=== PATIENT | female | born 1945 | race Caucasian/White ===

== ENCOUNTER 2021-09-24 19:39 | Emergency (ER) | payer OTHER ==
[2021-09-24] MEDS ORDERED: ONDANSETRON 4 MG/2 ML VIAL ONE (21:07)
[2021-09-24] MEDS ORDERED: NA CHLORIDE 0.9% 500 ML ONE (21:07)
[2021-09-24 21:08] LABS: Absolute Lymphocytes (CBC) 0.8 K/uL (0.7-4.9); Hematocrit 46.1 % (36.0-45.0); Lymphocytes % 13.4 % (15.3-44.8); MPV 8.7 fL (7.6-11.3); RBC Red Blood Cell Count 5.39 M/uL (3.86-4.86)
--- NOTE | 2021-09-24 21:22 | RAD REPORT ---
EXAM DESCRIPTION: RAD - Chest Single View - 09/24/2021 9:14 pm CLINICAL HISTORY: Cough;Dyspnea Chest pain. COMPARISON: No comparisons FINDINGS: Portable technique limits examination quality. Interstitial lung markings are mildly prominent suggesting a mild viral infection. The heart is mildl y prominent in size. No displaced fractures.
[2021-09-24 21:23] LABS: SARS-COV-2 RT PCR POSITIVE (NEGATIVE)
[2021-09-24 21:55] LABS: Ferritin 224.9 ng/mL (8-388); Potassium 4.1 mmol/L (3.5-5.1)
[2021-09-24] MEDS ORDERED: NA CHLORIDE 0.9% 250 ML ONE (22:21)
[2021-09-24] MEDS ORDERED: METHYLPREDNISOLONE 125 MG INJ ONE (22:21)
--- NOTE | 2021-09-24 23:32 | ER ---
Nurse's Notes [facility] Name: Meseret Biswas Age: 76 yrs Sex: Female : 1945 Arrival Date: 09/24/2021 Time: 19:49 Bed 17 Private MD: Diagnosis: SARS-associated coronavirus as the cause of diseases classified elsewhere;Dehydration Presentation: 09/24 20:13 Chief complaint: Patient states: "I started feeling bad a week ago. My back is hurting al4 like in my kidneys" and reports not urinating much due to not drinking. Patient is SOB with small amount of coughing. Denies vomitting, reports nausea/diarrhea. Coronavirus screen: Vaccine status: Patient reports being unvaccinated. Client presents with at least one sign or symptom that may indicate coronavirus-19. Initial Sepsis Screen: Does the patient meet any 2 criteria? No. Patient's initial sepsis screen is negative. Does the patient have a suspected source of infection? No. Patient's initial sepsis screen is negative. Risk Assessment: Do you want to hurt yourself or someone else? Patient reports no desire to harm self or others. Onset of symptoms was September 18, 2021. 20:13 Method Of Arrival: Ambulatory al4 20:13 Acuity: JOVON 3 al4 20:54 Ebola Screen: Patient negative for fever greater than or equal to 101.5 degrees ab2 Fahrenheit, and additional compatible Ebola Virus Disease symptoms Patient denies exposure to infectious person. Patient denies travel to an Ebola-affected area in the 21 days before illness onset. No symptoms or risks identified at this time. Triage Assessment: 20:17 General: Appears in no apparent distress. uncomfortable, Behavior is calm, cooperative, al4 appropriate for age. Neuro: Level of Consciousness is awake, alert, obeys commands, Oriented to person, place, time. Cardiovascular: Capillary refill < 3 seconds Patient's skin is warm and dry. Respiratory: Airway is patent Respiratory effort is even, unlabored, Respiratory pattern is regular, symmetrical. GI: Reports diarrhea, nausea. : No signs and/or symptoms were reported regarding the genitourinary system. :. 20:24 Pain: Pain currently is 10 out of 10 on a pain scale. al4 Historical: - Allergies: 20:25 Morphine; al4 - PMHx: 20:25 Hypertensive disorder; Atrial fibrillation; al4 - Immunization history:: Adult Immunizations up to date, Client reports having NOT received the Covid vaccine. Pneumococcal vaccine is not up to date. - Social history:: Smoking status: Patient denies any tobacco usage or history of. - Family history:: not pertinent. - Hospitalizations: : No recent hospitalization is reported. Screenin:54 Abuse screen: Denies threats or abuse. Denies injuries from another. Nutritional ab2 screening: No deficits noted. Tuberculosis screening: No symptoms or risk factors identified. Fall Risk None identified. Assessment: 20:52 General: Appears in no apparent distress. uncomfortable, Behavior is calm, cooperative, ab2 appropriate for age. Pain: Complains of pain in abdomen Pain currently is 3 out of 10 on a pain scale. Neuro: Level of Consciousness is awake, alert, obeys commands, Oriented to person, place, time, situation, Appropriate for age Compound Specialist are equal bilaterally Moves all extremities. Gait is steady. Cardiovascular: Denies chest pain, shortness of breath, Heart tones S1 S2 present Patient's skin is warm and dry. Chest pain is denied. Respiratory: Airway is patent Breath sounds are clear Denies cough, shortness of breath. GI: Abdomen is round non-distended, Bowel sounds present X 4 quads. Abdomen is tender to palpation X 4 quads. Reports lower abdominal pain, upper abdominal pain, diarrhea, intolerance of fluids, intolerance of food, nausea, vomiting. : No deficits noted. No signs and/or symptoms were reported regarding the genitourinary system. EENT: No deficits noted. No signs and/or symptoms were reported regarding the EENT system. Derm: No deficits noted. No signs and/or symptoms reported regarding the dermatologic system. Musculoskeletal: No deficits noted. No signs and/or symptoms reported regarding the musculoskeletal system. 21:23 Reassessment: Patient appears in no apparent distress at this time. No changes from tk1 previously documented assessment. Assumed care. General: Appears in no apparent distress. uncomfortable, Behavior is calm, cooperative, appropriate for age. Pain: Complains of pain in abdomen Pain currently is 3 out of 10 on a pain scale. Neuro: Level of Consciousness is awake, alert, obeys commands, Oriented to person, place, time, situation, Appropriate for age Compound Specialist are Moves all extremities. Gait is steady, Reports Denies. Cardiovascular: Denies chest pain, shortness of breath, Heart tones S1 S2 present Patient's skin is warm and dry. Chest pain is denied. Respiratory: Airway is patent Breath sounds are clear. GI: Abdomen is round non-distended, Bowel sounds present X 4 quads. Abdomen is tender to palpation X 4 quads. Reports lower abdominal pain, upper abdominal pain, diarrhea, intolerance of fluids, intolerance of food, nausea. : No deficits noted. No signs and/or symptoms were reported regarding the genitourinary system. EENT: No deficits noted. No signs and/or symptoms were reported regarding the EENT system. Derm: No deficits noted. No signs and/or symptoms reported regarding the dermatologic system. Musculoskeletal: No deficits noted. No signs and/or symptoms reported regarding the musculoskeletal system. 22:30 Reassessment: Patient appears in no apparent distress at this time. No changes from tk1 previously documented assessment. D/C per MD order. Discharge/Prescription instructions given to patient. Verbalized understanding. Vital Signs: 20:13 BP 139 / 104; Pulse 60; Resp 18; Temp 98.6; Pulse Ox 97% ; Height 5 ft. 2 in. (157.48 al4 cm) (R); 21:23 BP 129 / 110; Pulse 75; Resp 18; Temp 98.6; Pulse Ox 94% ; Pain 3/10; tk1 22:00 BP 109 / 71 LA Supine (auto/reg); Pulse 94 MON; Resp 22; Pulse Ox 97% on R/A; tk1 23:00 BP 134 / 83 LL Supine (auto/reg); Pulse 91 MON; Resp 20 S; Temp 98.3(O); Pulse Ox 97% tk1 on R/A; Vitals: 22:00 Cardiac Rhythm Assessment Atrial fibrillation. tk1 [place] Coma Score: 21:23 Eye Response: spontaneous(4). Verbal Response: oriented(5). Motor Response: obeys tk1 commands(6). Total: 15. ED Course: 19:49 Patient arrived in ED. ja2 20:17 Triage completed. al4 20:20 Scott Crawford MD is Attending Physician. rn 20:24 Arm band placed on left wrist. al4 20:27 COVID-19/FLU A+B (Document "Date of Onset" if Symptomatic) Sent. al4 20:54 Patient has correct armband on for positive identification. Bed in low position. Call ab2 light in reach. Side rails up X2. 20:54 No provider procedures requiring assistance completed. Inserted saline lock: 20 gauge ab2 in right antecubital area, using aseptic technique. Blood collected. 20:55 COVID-19/FLU A+B (Document "Date of Onset" if Symptomatic) Sent. ab2 20:55 CBC with Diff Sent. ab2 20:55 Basic Metabolic Panel Sent. ab2 20:55 Ferritin Sent. ab2 20:55 Procalcitonin Sent. ab2 20:55 CBC with Automated Diff Sent. ab2 20:58 Ramya Jackson is Primary Nurse. tk1 21:14 XRAY Chest (1 view) In Process Unspecified. EDMS 21:23 Awaiting lab results. tk1 21:23 No provider procedures requiring assistance completed. IV is patent, is intact, with tk1 fluids infusing freely. 23:00 IV discontinued, intact, bleeding controlled, No redness/swelling at site. Pressure tk1 dressing applied. Administered Medications: 21:08 Drug: NS 0.9% 500 ml Route: IV; Rate: bolus; Site: right antecubital; ab2 21:08 Drug: Zofran (Ondansetron) 4 mg Route: IVP; Site: right antecubital; ab2 22:17 Drug: NS 0.9% 250 ml Route: IV; Rate: 1 bolus; Site: right antecubital; tk1 22:18 Drug: SOLU-Medrol (methylPrednisoLONE) 125 mg Route: IVP; Site: right antecubital; tk1 Outcome: 23:31 Discharge ordered by . rn 09/25 00:10 Discharged to home via wheelchair, with family. tk1 Condition: stable Discharge instructions given to patient, family, Instructed on discharge instructions, follow up and referral plans. medication usage, Demonstrated understanding of instructions, follow-up care, medications, Prescriptions given X 3. 00:11 Patient left the ED. tk1 Signatures: Dispatcher [employer] EDMS Scott Crawford MD MD rn Alexander, Jessica ja2 Mamadou Begum al4 Ramya Jackson tk1 Mamadou Lares ab2 Corrections: (The following items were deleted from the chart) 09/24 22:10 20:55 C-REACTIVE PROTEIN+C.LAB.BRZ drawn and sent. ab2 EDMS 22:17 21:50 NS 0.9% 250 ml IV at 1 bolus in right antecubital tk1 tk1
--- NOTE | 2021-09-24 23:32 | EDPHYS ---
Physician Documentation [facility] Name: Meseret Biswas Age: 76 yrs Sex: Female : 1945 Arrival Date: 09/24/2021 Time: 19:49 Bed 17 Private MD: ED Physician Scott Crawford HPI: 09/24 20:28 This 76 yrs old Female presents to ER via Ambulatory with complaints of FATIGUE, rn Diarrhea, Nausea, Decreased Appetite. 20:28 The patient presents to the emergency department with nausea, vomiting, diarrhea. rn Onset: The symptoms/episode began/occurred 1 week(s) ago. Possible causes: unknown. The symptoms are aggravated by nothing. The symptoms are alleviated by nothing. Associated signs and symptoms: Pertinent positives: diarrhea, nausea, Pertinent negatives: abdominal pain, GI bleeding. Severity of symptoms: At their worst the symptoms were moderate in the emergency department the symptoms are unchanged. The patient has not experienced similar symptoms in the past. The patient has not recently seen a physician. Patient 1 week of feeling ill, reports nausea/vomiting/diarrhea/chills/headache/fatigue and malaise. Has been with similar symptoms as well. Patient reports mild cough and mild shortness of breath with exertion. Not Covid vaccinated.. Historical: - Allergies: 20:25 Morphine; al4 - PMHx: 20:25 Hypertensive disorder; Atrial fibrillation; al4 - Immunization history:: Adult Immunizations up to date, Client reports having NOT received the Covid vaccine. Pneumococcal vaccine is not up to date. - Social history:: Smoking status: Patient denies any tobacco usage or history of. - Family history:: not pertinent. - Hospitalizations: : No recent hospitalization is reported. ROS: 20:28 Constitutional: Negative for fever, and weight loss, Eyes: Negative for injury, pain, rn redness, and discharge, Neck: Negative for injury, pain, and swelling, Cardiovascular: Negative for chest pain, palpitations, and edema, Respiratory: Positive for cough and shortness of breath Abdomen/GI: Positive for nausea/vomiting/diarrhea : + decreased urination MS/Extremity: Negative for injury and deformity, Skin: Negative for injury, rash, and discoloration, Neuro: + headache and generalized weakness Exam: 20:28 Constitutional: This is a well developed, well nourished patient who is awake, alert rn Head/Face: Normocephalic, atraumatic. Eyes: Periorbital areas with no swelling, redness, or edema. ENT: dry MM, no stridor Cardiovascular: Irregular rhythm, regular rate Respiratory: + mild tachypnea, speaking full sentences, unlabored. Abdomen/GI: soft, non-tender Skin: Warm, dry MS/ Extremity: Pulses equal, no cyanosis. Neuro: Awake and alert, GCS 15 Vital Signs: 20:13 BP 139 / 104; Pulse 60; Resp 18; Temp 98.6; Pulse Ox 97% ; Height 5 ft. 2 in. (157.48 al4 cm) (R); 21:23 BP 129 / 110; Pulse 75; Resp 18; Temp 98.6; Pulse Ox 94% ; Pain 3/10; tk1 22:00 BP 109 / 71 LA Supine (auto/reg); Pulse 94 MON; Resp 22; Pulse Ox 97% on R/A; tk1 23:00 BP 134 / 83 LL Supine (auto/reg); Pulse 91 MON; Resp 20 S; Temp 98.3(O); Pulse Ox 97% tk1 on R/A; [place] Coma Score: 21:23 Eye Response: spontaneous(4). Verbal Response: oriented(5). Motor Response: obeys tk1 commands(6). Total: 15. MDM: 20:20 Patient medically screened. rn 22:46 Differential diagnosis: viral gastroenteritis, gastroenteritis, COVID, dehydration. rn Data reviewed: vital signs, nurses notes, lab test result(s), EKG, radiologic studies, plain films. Counseling: I had a detailed discussion with the patient and/or guardian regarding: the historical points, exam findings, and any diagnostic results supporting the discharge/admit diagnosis, the need for outpatient follow up, to return to the emergency department if symptoms worsen or persist or if there are any questions or concerns that arise at home. Response to treatment: the patient's symptoms have mildly improved after treatment. 23:30 ED course: Pt with moderate dehydration, markedly improved with IV fluids, states feels rn much better, CXR without pneumonia, shows mild viral infection, no oxygen requirement. After long discussion with patient, joint decision made to dc home with return precautions. . 09/24 20:21 Order name: COVID-19/FLU A+B (Document "Date of Onset" if Symptomatic); Complete Time: rn 21:44 09/24 20:23 Order name: CBC with Diff rn 09/24 20:23 Order name: Basic Metabolic Panel; Complete Time: 22:15 rn 09/24 20:23 Order name: Ferritin; Complete Time: 22:15 rn 09/24 20:23 Order name: Procalcitonin; Complete Time: 22:15 rn 09/24 20:23 Order name: XRAY Chest (1 view); Complete Time: 21:44 rn 09/24 20:23 Order name: EKG; Complete Time: 20:24 rn 09/24 20:23 Order name: CBC with Automated Diff; Complete Time: 21:44 EDMS 09/24 20:23 Order name: IV Start; Complete Time: 20:55 rn 09/24 20:23 Order name: Cardiac monitoring; Complete Time: 20:55 rn 09/24 20:23 Order name: EKG - Nurse/Tech; Complete Time: 21:08 rn Administered Medications: 21:08 Drug: NS 0.9% 500 ml Route: IV; Rate: bolus; Site: right antecubital; ab2 21:08 Drug: Zofran (Ondansetron) 4 mg Route: IVP; Site: right antecubital; ab2 22:17 Drug: NS 0.9% 250 ml Route: IV; Rate: 1 bolus; Site: right antecubital; tk1 22:18 Drug: SOLU-Medrol (methylPrednisoLONE) 125 mg Route: IVP; Site: right antecubital; tk1 Disposition Summary: 09/24/21 23:31 Discharge Ordered Location: Home rn Problem: new rn Symptoms: have improved rn Condition: Stable rn Diagnosis - SARS-associated coronavirus as the cause of diseases classified elsewhere rn - Dehydration rn Followup: rn - With: Private Physician - When: As needed - Reason: Recheck today's complaints, Re-evaluation by your physician Discharge Instructions: - Discharge Summary Sheet rn - Dehydration, Adult rn - COVID-19 rn - 10 Things You Can Do to Manage Your COVID-19 Symptoms at Home - [facility] rn - Viral Illness, Adult rn Forms: - Medication Reconciliation Form rn - Thank You Letter rn - Antibiotic rn labor and delivery - Prescription Opioid Use rn Prescriptions: - ondansetron 4 mg Oral film - take 1 tablet by ORAL route every 8 hours As needed; 15 tablet; Refills: 0, rn Product Selection Permitted - Zithromax Z-Daniel 250 mg Oral Tablet - take 1 tablet by ORAL route as directed for 5 days Day 1 - take two (2) tablets rn one time. Day 2, 3, 4 , 5 take one (1) tablet once daily.; 6 tablet; Refills: 0, Product Selection Permitted - Medrol (Daniel) 4 mg Oral Tablets, Dose Pack - take 1 tablet by ORAL route as directed - follow package instructions; 1 rn packet; Refills: 0, Product Selection Permitted Signatures: Dispatcher [employer] EDMS Scott Crawford MD MD rn Ledbetter, Alexis al4 Ramya Jackson tk1 Mamadou Lares2 Corrections: (The following items were deleted from the chart) 22:10 20:23 C-REACTIVE PROTEIN+C.LAB.BRZ ordered. EDNC EDMS
[2021-09-25 00:20] VITALS: O2SAT 97
[2021-09-25 00:21] VITALS: BP 134/83; TEMP 98.3
== END 2021-09-25 00:11 | disposition home or self-care (01) ==
LOC: ER 19:39
DX: U07.1 COVID-19 (principal); E86.0 Dehydration; I10 Essential (primary) hypertension; Z88.5 Allergy status to narcotic agent
CPT/HCPCS: 93005; 85025; 80048; 36415; 82728; 84145; 0240U; 71045; 96375; 96374; 99284; J7050; J7040; J2930; J2405

== ENCOUNTER 2021-11-03 06:53 | Day surgery (SDC) | payer OTHER ==
[2021-10-30 10:37] LABS: Absolute Lymphocytes (CBC) 1.3 K/uL (0.7-4.9); Hematocrit 39.5 % (36.0-45.0); Lymphocytes % 24.4 % (15.3-44.8); MPV 7.9 fL (7.6-11.3); RBC Red Blood Cell Count 4.46 M/uL (3.86-4.86)
[2021-10-30 10:44] LABS: Protime INR 2.7
--- NOTE | 2021-10-31 11:35 | EKG ---
Test Date: 2021-10-30 Test Time: 09:57:55 Postmaster: MEASUREMENT RESULTS: Intervals: Rate: 81 DE: QRSD: 164 QT: 416 QTc: 483 [place]: P: DE: QRS: -20 T: 98 INTERPRETIVE STATEMENTS: Atrial fibrillation Left bundle branch block Abnormal ECG Compared to ECG 09/24/2021 21:51:46 Left-axis deviation no longer present Myocardial infarct finding no longer present Electronically Signed On 10-31-21 11:29:26 GALLEY STRIPPER by Roumlo Barahona
[~2021-11-03 06:53] MED LIST: NA CHLORIDE 0.9% 500 ML ONE
[2021-11-03] MEDS ORDERED: FENTANYL CITR 100 MCG/2 ML ONE (07:08)
[2021-11-03] MEDS ORDERED: METOPROLOL TARTRATE 5 MG/5 ML INJ IV ONE (07:08)
[2021-11-03] MEDS ORDERED: ATROPINE SULF 1 MG/10 ML SYR IV ONE (07:09)
[2021-11-03] MEDS ORDERED: MIDAZOLAM HCL 5 ML ONE (07:09)
[2021-11-03] MEDS ORDERED: FLUMAZENIL 0.1 MG/ML (5 mL VIAL) IV ONE ×2 (07:09→09:09)
[2021-11-03] MEDS ORDERED: MIDAZOLAM HCL 2 MG/2 ML INJ ONE ×2 (07:09→07:44)
[2021-11-03 09:43] VITALS: BP 102/54; O2SAT 98
--- NOTE | 2021-11-03 11:03 | OP ---
Date of Procedure: 11/03/2021 Surgeon: Romulo Barahona MD Procedure: Direct current cardioversion. Indication: Atrial fibrillation that has failed flecainide. She is on Coumadin. Adequate INR. Procedure In Detail: Admitted to the hospital today as an outpatient. In the label operator, she received a total of 11 mg of Versed IV push as well as 50 of fentanyl. She received 1 shock of 200 joules an d converted to sinus rhythm. There were no complications. No blood loss. Final Diagnoses: Successful cardioversion of atrial fibrillation to sinus rhythm. We will continue flecainide and Coumadin. She will go home when she wakes up and see me in the office in 2 weeks. Continue present regimen wit h flecainide and Coumadin. Anesthesia: Total conscious sedation was 30 minutes. MARIZOL/DEE DEE Voice ID: [id number] Report ID: [id number]
--- NOTE | 2021-11-04 12:52 | EKG ---
Test Date: 2021-11-03 Test Time: 07:56:26 Rug Drying Machine Operator: YAW MEASUREMENT RESULTS: Intervals: Rate: 75 AR: 234 QRSD: 164 QT: 438 QTc: 489 [place]: P: 56 AR: 234 QRS: -43 T: 52 INTERPRETIVE STATEMENTS: Sinus rhythm with 1st degree AV block Left axis deviation Left bundle branch block Abnormal ECG Compared to ECG 10/30/2021 09:57:55 First degree AV block now present Left-axis deviation now present Atrial fibrillation no longer present Electronically Signed On 11-04-21 12:49:57 LOGISTICS ASSOCIATE by Romulo Barahona
== END 2021-11-03 09:30 | disposition home or self-care (01) ==
LOC: CCL 06:53
DX: I48.0 Paroxysmal atrial fibrillation (principal); I10 Essential (primary) hypertension; I51.7 Cardiomegaly; I34.8 Other nonrheumatic mitral valve disorders; E78.2 Mixed hyperlipidemia; E66.9 Obesity, unspecified; Z68.38 Body mass index [BMI] 38.0-38.9, adult; Z79.01 Long term (current) use of anticoagulants; Z88.6 Allergy status to analgesic agent; Z20.822 Contact with and (suspected) exposure to COVID-19
CPT/HCPCS: 93005 ×2; 85025; 80048; 36415; 85610; 85730; 92960; U0003; J2250 ×3; J7040; J3010